=== PATIENT | male | born 1960 | race Hispanic/Latino ===

== ENCOUNTER 2022-05-17 20:24 | Inpatient (IN) | payer OTHER ==
[2022-05-17] MEDS ORDERED: Acetaminophen 325 MG TAB PO PRN (23:07)
[2022-05-17] MEDS ORDERED: Nitroglycerin 0.4 MG TAB (25 Tab Bottle) SL PRN (23:07)
[2022-05-17] MEDS ORDERED: Ondansetron ODT 4 MG TAB PO PRN (23:07)
[2022-05-17] MEDS ORDERED: Acetaminophen 650 MG Suppository PR PRN (23:07)
[2022-05-17] MEDS ORDERED: Morphine 4 MG/ML VIAL SLOW IVP PRN (23:11)
[2022-05-17 23:53] LABS: Troponin I 0.056 ng/mL (< 0.028)
[2022-05-17] MEDS ORDERED: Piperacillin/Tazobactam 3.375 GM in Sodium Chloride 0.9% 100 ML IVPB SCH (23:59)
[2022-05-18] MEDS: Vancomycin 1.5 GRAM/300 ML BAG 1.5 GM in Premix Bag 1 BAG IVPB SCH ×3 (00:23→00:34)
[2022-05-18 00:48] VITALS: BMI 29.2
[2022-05-18 01:17] LABS: #Eosinphils 0.2 thou/uL (0.0-0.7); #Lymphocytes 0.7 thou/uL (1.20-3.40); #Monocytes 0.5 thou/uL (0.11-0.59); #Neutrophils 8.1 thou/uL (1.40-6.50); %Basophils 0.2 % (0.0-1.0); %Eosinophils 2.4 % (0.0-10.0); %Lymphocytes 7.3 % (21.0-51.0); %Monocytes 4.9 % (0.0-10.0); %Neutrophils 85.3 % (42.0-75.0); Hemoglobin 12.8 g/dL (14.0-18.0); Mean Corpuscular HGB CONC 30.2 g/dL (32.0-36.0); Mean Corpuscular Hemoglobin 25.7 pg (27.0-31.0); Mean Corpuscular Volume 85.2 fL (78.0-98.0); Mean Platelet Volume 10.2 fL (7.4-10.4); Platelet Count 179 thou/uL (130-400); RBC Distribution Width 15.8 % (11.5-14.5); Red Blood Cell (RBC) Count 4.97 mill/uL (4.70-6.10); White Blood Cell (WBC) Count 9.5 thou/uL (4.8-10.8)
[2022-05-18 01:32] LABS: Anion Gap 16 mmol/L (10-20); BUN (Urea Nitrogen) 99 mg/dL (8.4-25.7); Calc. Creatinine Clearance 19 mL/min (70-130); Calcium 8.2 mg/dL (7.8-10.44); Carbon Dioxide 16 mmol/L (23-31); Chloride 117 mmol/L (98-107); Estimated GFR 14; Glucose 116 mg/dL (80-115); Potassium 4.3 mmol/L (3.5-5.1); Sodium 145 mmol/L (136-145)
[2022-05-18] MEDS: Piperacillin/Tazobactam 3.375 GM in Sodium Chloride 0.9% 100 ML IVPB SCH ×2 (03:58→20:37)
[2022-05-18 07:05] LABS: Troponin I 0.047 ng/mL (< 0.028)
[2022-05-18] MEDS ORDERED: Aspirin Chewable 81 MG TAB PO SCH (09:00)
[2022-05-18] MEDS ORDERED: Heparin 5,000 UNITS/ML VIAL SC SCH (09:00)
[2022-05-18] MEDS: hydrALAZINE 20 MG/ML VIAL SLOW IVP PRN (11:02)
[2022-05-18] MEDS ORDERED: hydrALAZINE 25 MG TAB PO SCH (11:15)
[2022-05-18] MEDS ORDERED: Isosorbide Dinitrate 20 MG TAB PO SCH (11:15)
[2022-05-18] MEDS: hydrALAZINE 25 MG TAB PO SCH ×2 (16:07→20:37)
[2022-05-18] MEDS: Atorvastatin Calcium 40 MG TAB PO SCH (20:37)
[2022-05-18] MEDS: Apixaban 2.5 MG TAB PO SCH (20:37)
[2022-05-18] MEDS: Isosorbide Dinitrate 20 MG TAB PO SCH (20:38)
[2022-05-19 00:22] LABS: Vancomycin, Random 14.2 ug/mL (See Comment)
[2022-05-19] MEDS ORDERED: VANCOMYCIN 1.25 GM/250 ML BAG 1.25 GM in Premix Bag 1 BAG IVPB SCH (01:00)
[2022-05-19] MEDS ORDERED: Vancomycin 1 GM in Premix Bag 1 BAG IVPB SCH (01:30)
[2022-05-19 01:47] LABS: Bacteria/HPF None Seen HPF (None Seen); Bilirubin Negative (Negative); Blood, Urine 1+ (Negative); Clarity Turbid (Clear); Glucose, Urine (Dipstick) Normal (Negative); Ketone, Urine Negative (Negative); Leukocyte 500 Leu/uL (Negative); Nitrite Negative (Negative); Protein, Urine (Dipstick) 100 mg/dL (Neg-Trace); Specific Gravity, Urine 1.012 (1.002-1.036); Squamous Epithelial None Seen HPF (0-3); Urobilinogen Normal mg/dL (Less than 2); WBC/HPF Greater than 50 HPF (0-3); pH, Urine 5.5 (5.0-9.0)
[2022-05-19 02:13] LABS: Creatinine, Urine 40.38 mg/dL (63-166)
[2022-05-19] MEDS: Piperacillin/Tazobactam 3.375 GM in Sodium Chloride 0.9% 100 ML IVPB SCH ×2 (03:58→17:07)
[2022-05-19 05:29] LABS: #Eosinphils 0.3 thou/uL (0.0-0.7); #Lymphocytes 0.6 thou/uL (1.20-3.40); #Monocytes 0.5 thou/uL (0.11-0.59); %Basophils 0.1 % (0.0-1.0); %Eosinophils 3.4 % (0.0-10.0); %Lymphocytes 5.8 % (21.0-51.0); %Monocytes 5.1 % (0.0-10.0); %Neutrophils 85.6 % (42.0-75.0); Hemoglobin 11.4 g/dL (14.0-18.0); Mean Corpuscular HGB CONC 30.5 g/dL (32.0-36.0); Mean Corpuscular Hemoglobin 25.7 pg (27.0-31.0); Mean Corpuscular Volume 84.3 fL (78.0-98.0); Mean Platelet Volume 10.2 fL (7.4-10.4); Platelet Count 168 thou/uL (130-400); RBC Distribution Width 15.7 % (11.5-14.5); Red Blood Cell (RBC) Count 4.43 mill/uL (4.70-6.10); White Blood Cell (WBC) Count 9.4 thou/uL (4.8-10.8)
[2022-05-19 06:07] LABS: Anion Gap 14 mmol/L (10-20); BUN (Urea Nitrogen) 91 mg/dL (8.4-25.7); Calc. Creatinine Clearance 19 mL/min (70-130); Calcium 7.5 mg/dL (7.8-10.44); Carbon Dioxide 19 mmol/L (23-31); Chloride 114 mmol/L (98-107); Estimated GFR 15; Glucose 169 mg/dL (80-115); Potassium 3.9 mmol/L (3.5-5.1); Sodium 143 mmol/L (136-145)
[2022-05-19] MEDS: Aspirin 81 mg Enteric Coated Tablet PO SCH (11:16)
[2022-05-19] MEDS: Apixaban 2.5 MG TAB PO SCH ×2 (11:16→20:54)
[2022-05-19] MEDS: Isosorbide Dinitrate 20 MG TAB PO SCH ×2 (11:16→20:47)
[2022-05-19] MEDS: hydrALAZINE 25 MG TAB PO SCH ×3 (11:16→20:48)
[2022-05-19] MEDS ORDERED: Nystatin Powder 15 GM BOT TOP PRN (11:27)
[2022-05-19] MEDS: Atorvastatin Calcium 40 MG TAB PO SCH (20:47)
[2022-05-19] MEDS: Sodium Bicarbonate Tab 325 MG TAB PO SCH (20:54)
[2022-05-19] MEDS: hydrALAZINE 20 MG/ML VIAL SLOW IVP PRN (22:14)
[2022-05-20] MEDS: hydrALAZINE 20 MG/ML VIAL SLOW IVP PRN (01:30)
[2022-05-20] MEDS: Piperacillin/Tazobactam 3.375 GM in Sodium Chloride 0.9% 100 ML IVPB SCH ×2 (04:37→16:17)
[2022-05-20 07:36] LABS: #Eosinphils 0.2 thou/uL (0.0-0.7); #Lymphocytes 0.7 thou/uL (1.20-3.40); #Monocytes 0.5 thou/uL (0.11-0.59); #Neutrophils 8.1 thou/uL (1.40-6.50); %Eosinophils 2.4 % (0.0-10.0); %Monocytes 5.2 % (0.0-10.0); %Neutrophils 85.4 % (42.0-75.0); Hemoglobin 12.5 g/dL (14.0-18.0); Mean Corpuscular HGB CONC 31.2 g/dL (32.0-36.0); Mean Corpuscular Hemoglobin 26.2 pg (27.0-31.0); Mean Corpuscular Volume 84.1 fL (78.0-98.0); Mean Platelet Volume 10.1 fL (7.4-10.4); Platelet Count 165 thou/uL (130-400); RBC Distribution Width 15.6 % (11.5-14.5); Red Blood Cell (RBC) Count 4.76 mill/uL (4.70-6.10); White Blood Cell (WBC) Count 9.5 thou/uL (4.8-10.8)
[2022-05-20 07:46] LABS: Anion Gap 14 mmol/L (10-20); BUN (Urea Nitrogen) 79 mg/dL (8.4-25.7); Calc. Creatinine Clearance 21 mL/min (70-130); Calcium 7.4 mg/dL (7.8-10.44); Carbon Dioxide 18 mmol/L (23-31); Chloride 114 mmol/L (98-107); Estimated GFR 16; Glucose 116 mg/dL (80-115); Sodium 142 mmol/L (136-145)
[2022-05-20] MEDS: Apixaban 2.5 MG TAB PO SCH ×2 (08:47→21:00)
[2022-05-20] MEDS: hydrALAZINE 25 MG TAB PO SCH ×3 (08:47→21:07)
[2022-05-20] MEDS: Aspirin 81 mg Enteric Coated Tablet PO SCH (08:49)
[2022-05-20] MEDS: Sodium Bicarbonate Tab 325 MG TAB PO SCH ×2 (08:49→20:59)
[2022-05-20] MEDS: Isosorbide Dinitrate 20 MG TAB PO SCH ×2 (08:49→21:07)
[2022-05-20] MEDS ORDERED: Carvedilol 6.25 MG TAB PO SCH (09:00)
[2022-05-20] MEDS ORDERED: NIFEdipine XL 90 MG TAB PO SCH (10:15)
[2022-05-20] MEDS: Atorvastatin Calcium 40 MG TAB PO SCH (21:00)
[2022-05-20] MEDS: Ondansetron PF 4 MG/2 ML Vial IVP PRN (21:00)
[2022-05-21] MEDS: Piperacillin/Tazobactam 3.375 GM in Sodium Chloride 0.9% 100 ML IVPB SCH (03:58)
[2022-05-21 04:55] LABS: #Eosinphils 0.2 thou/uL (0.0-0.7); #Lymphocytes 0.7 thou/uL (1.20-3.40); #Monocytes 0.5 thou/uL (0.11-0.59); #Neutrophils 8.3 thou/uL (1.40-6.50); %Eosinophils 2.2 % (0.0-10.0); %Monocytes 5.2 % (0.0-10.0); %Neutrophils 85.5 % (42.0-75.0); Hemoglobin 12.1 g/dL (14.0-18.0); Mean Corpuscular HGB CONC 29.4 g/dL (32.0-36.0); Mean Corpuscular Hemoglobin 25.5 pg (27.0-31.0); Mean Corpuscular Volume 86.6 fL (78.0-98.0); Mean Platelet Volume 10.3 fL (7.4-10.4); Platelet Count 183 thou/uL (130-400); RBC Distribution Width 16.2 % (11.5-14.5); Red Blood Cell (RBC) Count 4.76 mill/uL (4.70-6.10); White Blood Cell (WBC) Count 9.7 thou/uL (4.8-10.8)
[2022-05-21 05:41] LABS: Anion Gap 18 mmol/L (10-20); BUN (Urea Nitrogen) 84 mg/dL (8.4-25.7); Calc. Creatinine Clearance 18 mL/min (70-130); Calcium 7.8 mg/dL (7.8-10.44); Carbon Dioxide 15 mmol/L (23-31); Chloride 110 mmol/L (98-107); Estimated GFR 14; Glucose 142 mg/dL (80-115); Sodium 138 mmol/L (136-145)
[2022-05-21] MEDS ORDERED: FLU VACC QS2022-23(6MOS UP)/PF 60 MCG/0.5 ML SYRINGE IM ONE (09:00)
[2022-05-21] MEDS: Apixaban 2.5 MG TAB PO SCH ×2 (09:08→21:01)
[2022-05-21] MEDS: Sodium Bicarbonate Tab 325 MG TAB PO SCH ×2 (09:08→21:00)
[2022-05-21] MEDS: Aspirin 81 mg Enteric Coated Tablet PO SCH (09:08)
[2022-05-21] MEDS: hydrALAZINE 25 MG TAB PO SCH ×3 (09:09→21:15)
[2022-05-21] MEDS: Isosorbide Dinitrate 20 MG TAB PO SCH ×2 (09:09→21:01)
[2022-05-21] MEDS: NIFEdipine XL 90 MG TAB PO SCH (09:11)
[2022-05-21] MEDS: Cephalexin 250 MG CAP PO SCH (17:55)
[2022-05-21] MEDS ORDERED: Ciprofloxacin 500 MG TAB PO SCH (20:00)
[2022-05-21] MEDS: Atorvastatin Calcium 40 MG TAB PO SCH (21:15)
[2022-05-22 05:25] LABS: #Eosinphils 0.3 thou/uL (0.0-0.7); #Lymphocytes 0.8 thou/uL (1.20-3.40); #Monocytes 0.5 thou/uL (0.11-0.59); #Neutrophils 8.3 thou/uL (1.40-6.50); %Basophils 0.3 % (0.0-1.0); %Eosinophils 3.1 % (0.0-10.0); %Lymphocytes 7.9 % (21.0-51.0); %Monocytes 4.8 % (0.0-10.0); %Neutrophils 83.8 % (42.0-75.0); Hemoglobin 11.2 g/dL (14.0-18.0); Mean Corpuscular HGB CONC 29.6 g/dL (32.0-36.0); Mean Corpuscular Hemoglobin 25.2 pg (27.0-31.0); Mean Corpuscular Volume 85.1 fL (78.0-98.0); Mean Platelet Volume 9.6 fL (7.4-10.4); Platelet Count 166 thou/uL (130-400); RBC Distribution Width 15.9 % (11.5-14.5); Red Blood Cell (RBC) Count 4.45 mill/uL (4.70-6.10); White Blood Cell (WBC) Count 9.9 thou/uL (4.8-10.8)
[2022-05-22 05:54] LABS: Anion Gap 16 mmol/L (10-20); BUN (Urea Nitrogen) 90 mg/dL (8.4-25.7); Calc. Creatinine Clearance 16 mL/min (70-130); Calcium 7.9 mg/dL (7.8-10.44); Carbon Dioxide 19 mmol/L (23-31); Chloride 109 mmol/L (98-107); Estimated GFR 12; Glucose 94 mg/dL (80-115); Potassium 4.7 mmol/L (3.5-5.1); Sodium 139 mmol/L (136-145)
[2022-05-22] MEDS: Cephalexin 250 MG CAP PO SCH ×4 (07:28→18:35)
[2022-05-22] MEDS: Cipro 250 MG TAB PO SCH (07:37)
[2022-05-22] MEDS: Apixaban 2.5 MG TAB PO SCH (09:25)
[2022-05-22] MEDS: Aspirin 81 mg Enteric Coated Tablet PO SCH (09:25)
[2022-05-22] MEDS: Sodium Bicarbonate Tab 325 MG TAB PO SCH ×2 (09:25→20:55)
[2022-05-22] MEDS: NIFEdipine XL 90 MG TAB PO SCH (09:26)
[2022-05-22] MEDS: hydrALAZINE 25 MG TAB PO SCH ×3 (09:26→20:54)
[2022-05-22] MEDS: Isosorbide Dinitrate 20 MG TAB PO SCH ×2 (09:27→20:54)
[2022-05-22] MEDS ORDERED: CEFAZOLIN 2 GM in Sodium Chloride 0.9% 100 ML IVPB SCH (10:00)
[2022-05-22] MEDS: hydrALAZINE 20 MG/ML VIAL SLOW IVP PRN ×2 (13:25→18:35)
[2022-05-22] MEDS: Atorvastatin Calcium 40 MG TAB PO SCH (20:54)
[2022-05-23] MEDS: Cephalexin 250 MG CAP PO SCH ×4 (00:14→22:25)
[2022-05-23] MEDS: hydrALAZINE 20 MG/ML VIAL SLOW IVP PRN ×2 (02:34→11:13)
[2022-05-23] MEDS: Cipro 250 MG TAB PO SCH (06:04)
[2022-05-23] MEDS ORDERED: Propofol 500 MG/50 ML VIAL ONE (06:25)
[2022-05-23] MEDS ORDERED: Promethazine HCl 25 MG/ML VIAL IM PRN (07:40)
[2022-05-23] MEDS ORDERED: Promethazine HCl 25 MG/ML VIAL IVPB PRN (07:40)
[2022-05-23] MEDS ORDERED: Lidocaine 2% PF 5 ML VIAL ONE (07:51)
[2022-05-23] MEDS ORDERED: Bupivacaine PF 0.5% 30 ML VIAL ONE (07:51)
[2022-05-23] MEDS ORDERED: EPINEPHrine 1 MG/ML AMP ONE (07:51)
[2022-05-23] MEDS ORDERED: Heparin 10,000 UNITS/ 10 ML VIAL ONE (07:51)
[2022-05-23] MEDS ORDERED: Ketamine 50 MG/ML (10ML VIAL) ONE (07:58)
[2022-05-23] MEDS ORDERED: Sodium Chloride 0.9% 100 ML ONE (08:00)
[2022-05-23] MEDS ORDERED: CEFAZOLIN 2 GM VIAL ONE (08:00)
[2022-05-23] MEDS ORDERED: PROPOFOL 200 MG/20 ML VIAL ONE (08:09)
[2022-05-23] MEDS ORDERED: Labetalol HCl 100 MG/20 ML VIAL ONE (08:09)
[2022-05-23 09:38] LABS: #Eosinphils 0.2 thou/uL (0.0-0.7); #Lymphocytes 0.9 thou/uL (1.20-3.40); #Monocytes 0.5 thou/uL (0.11-0.59); #Neutrophils 8.4 thou/uL (1.40-6.50); %Basophils 0.4 % (0.0-1.0); %Lymphocytes 8.9 % (21.0-51.0); %Monocytes 5.4 % (0.0-10.0); %Neutrophils 83.4 % (42.0-75.0); Hemoglobin 11.4 g/dL (14.0-18.0); Mean Corpuscular HGB CONC 30.4 g/dL (32.0-36.0); Mean Corpuscular Hemoglobin 25.5 pg (27.0-31.0); Mean Corpuscular Volume 83.8 fL (78.0-98.0); Mean Platelet Volume 9.9 fL (7.4-10.4); Platelet Count 174 thou/uL (130-400); RBC Distribution Width 15.9 % (11.5-14.5); Red Blood Cell (RBC) Count 4.48 mill/uL (4.70-6.10)
[2022-05-23] MEDS: Sodium Bicarbonate Tab 325 MG TAB PO SCH ×2 (09:52→22:27)
[2022-05-23] MEDS: Aspirin 81 mg Enteric Coated Tablet PO SCH (09:52)
[2022-05-23] MEDS: hydrALAZINE 25 MG TAB PO SCH ×3 (09:52→22:26)
[2022-05-23] MEDS: Isosorbide Dinitrate 20 MG TAB PO SCH ×2 (09:52→22:26)
[2022-05-23] MEDS: NIFEdipine XL 90 MG TAB PO SCH (09:52)
[2022-05-23 09:58] LABS: Anion Gap 17 mmol/L (10-20); BUN (Urea Nitrogen) 90 mg/dL (8.4-25.7); Calc. Creatinine Clearance 16 mL/min (70-130); Carbon Dioxide 16 mmol/L (23-31); Chloride 111 mmol/L (98-107); Estimated GFR 11; Glucose 82 mg/dL (80-115); Potassium 4.2 mmol/L (3.5-5.1); Sodium 140 mmol/L (136-145)
[2022-05-23] MEDS ORDERED: Isosorbide Dinitrate 20 MG TAB PO SCH (11:45)
[2022-05-23] MEDS ORDERED: hydrALAZINE 25 MG TAB PO SCH (11:45)
[2022-05-23] MEDS ORDERED: NIFEdipine XL 90 MG TAB PO SCH (11:45)
[2022-05-23] MEDS ORDERED: Sodium Bicarbonate Tab 325 MG TAB PO SCH (11:45)
[2022-05-23 12:19] LABS: Hep B Surf Ag Non-Reactive S/CO (NonReactive)
[2022-05-23] MEDS: Atorvastatin Calcium 40 MG TAB PO SCH (22:25)
[2022-05-24] MEDS: Cephalexin 250 MG CAP PO SCH ×5 (01:42→23:53)
[2022-05-24] MEDS: Cipro 250 MG TAB PO SCH (06:09)
[2022-05-24 07:22] LABS: Hemoglobin 9.7 g/dL (14.0-18.0)
[2022-05-24 07:47] LABS: Anion Gap 14 mmol/L (10-20); BUN (Urea Nitrogen) 78 mg/dL (8.4-25.7); Calc. Creatinine Clearance 16 mL/min (70-130); Calcium 7.9 mg/dL (7.8-10.44); Carbon Dioxide 21 mmol/L (23-31); Chloride 106 mmol/L (98-107); Estimated GFR 12; Glucose 208 mg/dL (80-115); Sodium 137 mmol/L (136-145)
[2022-05-24] MEDS: Isosorbide Dinitrate 20 MG TAB PO SCH ×2 (09:15→21:36)
[2022-05-24] MEDS: NIFEdipine XL 90 MG TAB PO SCH (09:15)
[2022-05-24] MEDS: hydrALAZINE 25 MG TAB PO SCH ×3 (09:15→21:35)
[2022-05-24] MEDS: Aspirin 81 mg Enteric Coated Tablet PO SCH (09:32)
[2022-05-24] MEDS: Sodium Bicarbonate Tab 325 MG TAB PO SCH ×2 (09:32→21:36)
[2022-05-24] MEDS ORDERED: Heparin 10,000 UNITS/ 10 ML VIAL ONE (15:22)
[2022-05-24] MEDS: Atorvastatin Calcium 40 MG TAB PO SCH (21:36)
[2022-05-25] MEDS: Cephalexin 250 MG CAP PO SCH ×4 (06:04→23:57)
[2022-05-25] MEDS: Cipro 250 MG TAB PO SCH (06:04)
[2022-05-25] MEDS: Sodium Bicarbonate Tab 325 MG TAB PO SCH ×2 (09:21→21:05)
[2022-05-25] MEDS: hydrALAZINE 25 MG TAB PO SCH ×3 (09:21→21:05)
[2022-05-25] MEDS: Isosorbide Dinitrate 20 MG TAB PO SCH ×2 (09:22→21:05)
[2022-05-25] MEDS: NIFEdipine XL 90 MG TAB PO SCH (09:22)
[2022-05-25] MEDS: Aspirin 81 mg Enteric Coated Tablet PO SCH (09:22)
[2022-05-25] MEDS ORDERED: Heparin 10,000 UNITS/ 10 ML VIAL ONE (15:23)
[2022-05-25] MEDS: Atorvastatin Calcium 40 MG TAB PO SCH (21:05)
[2022-05-26] MEDS: Cephalexin 250 MG CAP PO SCH ×3 (06:07→17:34)
[2022-05-26] MEDS: Cipro 250 MG TAB PO SCH (06:07)
[2022-05-26] MEDS: NIFEdipine XL 90 MG TAB PO SCH (08:38)
[2022-05-26] MEDS: Sodium Bicarbonate Tab 325 MG TAB PO SCH ×2 (08:38→21:17)
[2022-05-26] MEDS: Isosorbide Dinitrate 20 MG TAB PO SCH ×3 (08:38→21:26)
[2022-05-26] MEDS: hydrALAZINE 25 MG TAB PO SCH ×3 (08:38→21:25)
[2022-05-26] MEDS: Aspirin 81 mg Enteric Coated Tablet PO SCH (08:38)
[2022-05-26] MEDS ORDERED: Ergocalciferol 1.25 MG(50,000 UNITS) CAP PO SCH (09:00)
[2022-05-26] MEDS: Atorvastatin Calcium 40 MG TAB PO SCH (21:17)
[2022-05-27] MEDS: Cephalexin 250 MG CAP PO SCH ×5 (00:10→17:50)
[2022-05-27] MEDS: Ondansetron PF 4 MG/2 ML Vial IVP PRN (02:51)
[2022-05-27] MEDS: Cipro 250 MG TAB PO SCH ×2 (05:48→08:01)
[2022-05-27 06:23] LABS: Anion Gap 13 mmol/L (10-20); BUN (Urea Nitrogen) 43 mg/dL (8.4-25.7); Calc. Creatinine Clearance 20 mL/min (70-130); Calcium 8.4 mg/dL (7.8-10.44); Carbon Dioxide 29 mmol/L (23-31); Chloride 101 mmol/L (98-107); Estimated GFR 15; Glucose 146 mg/dL (80-115); Potassium 4.2 mmol/L (3.5-5.1); Sodium 139 mmol/L (136-145)
[2022-05-27] MEDS: hydrALAZINE 25 MG TAB PO SCH ×3 (08:07→21:19)
[2022-05-27] MEDS: NIFEdipine XL 90 MG TAB PO SCH (08:07)
[2022-05-27] MEDS: Isosorbide Dinitrate 20 MG TAB PO SCH ×2 (08:07→21:19)
[2022-05-27] MEDS: Sodium Bicarbonate Tab 325 MG TAB PO SCH (08:08)
[2022-05-27] MEDS: Aspirin 81 mg Enteric Coated Tablet PO SCH (08:08)
[2022-05-27] MEDS: Epoetin (ESRD) 10,000 UNITS/ML VIAL IVP SCH (15:18)
[2022-05-27] MEDS ORDERED: Heparin 10,000 UNITS/ 10 ML VIAL ONE (15:24)
[2022-05-27] MEDS ORDERED: CEFAZOLIN 2 GM in Sodium Chloride 0.9% 100 ML IVPB SCH (16:15)
[2022-05-27] MEDS: Tuberculin PPD 0.1 ML VIAL I-DERMAL SCH (17:50)
[2022-05-27] MEDS: Atorvastatin Calcium 40 MG TAB PO SCH (21:19)
[2022-05-28] MEDS: Cephalexin 250 MG CAP PO SCH ×4 (00:50→18:23)
[2022-05-28] MEDS: Cipro 250 MG TAB PO SCH (05:51)
[2022-05-28 07:02] LABS: Anion Gap 11 mmol/L (10-20); BUN (Urea Nitrogen) 30 mg/dL (8.4-25.7); Calc. Creatinine Clearance 26 mL/min (70-130); Calcium 7.9 mg/dL (7.8-10.44); Carbon Dioxide 29 mmol/L (23-31); Chloride 103 mmol/L (98-107); Estimated GFR 21; Glucose 82 mg/dL (80-115); Potassium 3.8 mmol/L (3.5-5.1); Sodium 139 mmol/L (136-145)
[2022-05-28 07:23] LABS: HBSAg Index 0.26 S/CO (0-0.99); Hep B Surf Ag Non-Reactive S/CO (NonReactive)
[2022-05-28 07:38] LABS: #Eosinphils 0.2 thou/uL (0.0-0.7); #Lymphocytes 0.7 thou/uL (1.20-3.40); #Monocytes 0.5 thou/uL (0.11-0.59); #Neutrophils 6.3 thou/uL (1.40-6.50); %Basophils 0.3 % (0.0-1.0); %Eosinophils 2.5 % (0.0-10.0); %Lymphocytes 8.7 % (21.0-51.0); %Monocytes 6.8 % (0.0-10.0); %Neutrophils 81.7 % (42.0-75.0); Hemoglobin 8.4 g/dL (14.0-18.0); Mean Corpuscular HGB CONC 29.8 g/dL (32.0-36.0); Mean Corpuscular Hemoglobin 25.1 pg (27.0-31.0); Mean Corpuscular Volume 84.2 fl (78.0-98.0); Mean Platelet Volume 10.2 fL (7.4-10.4); Platelet Count 112 thou/uL (130-400); RBC Distribution Width 15.5 % (11.5-14.5); Red Blood Cell (RBC) Count 3.35 mill/uL (4.70-6.10); White Blood Cell (WBC) Count 7.7 thou/uL (4.8-10.8)
[2022-05-28 07:39] LABS: Hypochromia SLIGHT = 6-15 cells (100X) (0-5/hpf); MDiff Complete? YES; Platelet Morphology Comment Appears Decreased; Polychromasia SLIGHT = 2-3 cells (100X) (0-2/hpf)
[2022-05-28] MEDS: Aspirin 81 mg Enteric Coated Tablet PO SCH (08:12)
[2022-05-28] MEDS: hydrALAZINE 25 MG TAB PO SCH ×3 (08:12→20:28)
[2022-05-28] MEDS: NIFEdipine XL 90 MG TAB PO SCH (08:12)
[2022-05-28] MEDS: Isosorbide Dinitrate 20 MG TAB PO SCH ×2 (08:13→20:28)
[2022-05-28 08:55] LABS: HBSAB Concentration 54.59 mIU/mL; Hep B Surf AB Reactive (NonReactive); Hep C IgG Ab Reflex HepC Qnt (NonReactive); Hep C Index 4.68 S/CO (0-0.79)
[2022-05-28 08:56] LABS: Hep B Core Total Ab Reactive (NonReactive)
[2022-05-28 08:57] LABS: Hep B Core Total Index 13.59 S/CO (0-0.79)
[2022-05-28] MEDS: Atorvastatin Calcium 40 MG TAB PO SCH (20:28)
[2022-05-29] MEDS: Cephalexin 250 MG CAP PO SCH ×4 (05:12→18:03)
[2022-05-29] MEDS: Cipro 250 MG TAB PO SCH (05:12)
[2022-05-29 05:46] LABS: #Eosinphils 0.2 thou/uL (0.0-0.7); #Lymphocytes 0.5 thou/uL (1.20-3.40); #Monocytes 0.5 thou/uL (0.11-0.59); #Neutrophils 6.1 thou/uL (1.40-6.50); %Basophils 0.5 % (0.0-1.0); %Eosinophils 2.2 % (0.0-10.0); %Lymphocytes 7.4 % (21.0-51.0); %Monocytes 6.3 % (0.0-10.0); %Neutrophils 83.6 % (42.0-75.0); Mean Corpuscular HGB CONC 29.9 g/dL (32.0-36.0); Mean Corpuscular Hemoglobin 25.2 pg (27.0-31.0); Mean Corpuscular Volume 84.2 fl (78.0-98.0); Mean Platelet Volume 10.2 fL (7.4-10.4); Platelet Count 122 thou/uL (130-400); RBC Distribution Width 15.6 % (11.5-14.5); Red Blood Cell (RBC) Count 3.17 mill/uL (4.70-6.10); White Blood Cell (WBC) Count 7.3 thou/uL (4.8-10.8)
[2022-05-29 06:51] LABS: Anion Gap 14 mmol/L (10-20); BUN (Urea Nitrogen) 42 mg/dL (8.4-25.7); Calc. Creatinine Clearance 21 mL/min (70-130); Calcium 8.2 mg/dL (7.8-10.44); Carbon Dioxide 25 mmol/L (23-31); Chloride 101 mmol/L (98-107); Estimated GFR 16; Glucose 143 mg/dL (80-115); Potassium 3.8 mmol/L (3.5-5.1); Sodium 136 mmol/L (136-145)
[2022-05-29] MEDS: Aspirin 81 mg Enteric Coated Tablet PO SCH (08:37)
[2022-05-29] MEDS: hydrALAZINE 25 MG TAB PO SCH ×3 (09:20→20:06)
[2022-05-29] MEDS: NIFEdipine XL 60 MG TAB PO SCH ×2 (09:21→20:06)
[2022-05-29] MEDS: Isosorbide Dinitrate 20 MG TAB PO SCH ×2 (09:21→20:06)
[2022-05-29] MEDS: Epoetin (ESRD) 10,000 UNITS/ML VIAL IVP SCH (11:13)
[2022-05-29] MEDS: Tuberculin PPD 0.1 ML VIAL I-DERMAL SCH (17:30)
[2022-05-29] MEDS: Atorvastatin Calcium 40 MG TAB PO SCH (20:06)
[2022-05-30] MEDS: Cephalexin 250 MG CAP PO SCH ×4 (00:08→18:12)
[2022-05-30] MEDS: Cipro 250 MG TAB PO SCH (05:18)
[2022-05-30 06:21] LABS: #Eosinphils 0.2 thou/uL (0.0-0.7); #Lymphocytes 0.7 thou/uL (1.20-3.40); #Monocytes 0.4 thou/uL (0.11-0.59); #Neutrophils 5.3 thou/uL (1.40-6.50); %Basophils 0.7 % (0.0-1.0); %Eosinophils 2.6 % (0.0-10.0); %Lymphocytes 10.1 % (21.0-51.0); %Neutrophils 80.6 % (42.0-75.0); Hemoglobin 8.5 g/dL (14.0-18.0); Mean Corpuscular HGB CONC 29.8 g/dL (32.0-36.0); Mean Corpuscular Hemoglobin 25.4 pg (27.0-31.0); Mean Corpuscular Volume 85.1 fl (78.0-98.0); Mean Platelet Volume 9.8 fL (7.4-10.4); Platelet Count 140 thou/uL (130-400); RBC Distribution Width 15.3 % (11.5-14.5); Red Blood Cell (RBC) Count 3.35 mill/uL (4.70-6.10); White Blood Cell (WBC) Count 6.6 thou/uL (4.8-10.8)
[2022-05-30 07:17] LABS: Anion Gap 14 mmol/L (10-20); BUN (Urea Nitrogen) 30 mg/dL (8.4-25.7); Calc. Creatinine Clearance 26 mL/min (70-130); Calcium 8.3 mg/dL (7.8-10.44); Carbon Dioxide 27 mmol/L (23-31); Chloride 103 mmol/L (98-107); Estimated GFR 21; Glucose 83 mg/dL (80-115); Potassium 4.1 mmol/L (3.5-5.1); Sodium 140 mmol/L (136-145)
[2022-05-30] MEDS: Isosorbide Dinitrate 20 MG TAB PO SCH ×2 (09:14→21:06)
[2022-05-30] MEDS: NIFEdipine XL 60 MG TAB PO SCH ×2 (09:14→21:06)
[2022-05-30] MEDS: Aspirin 81 mg Enteric Coated Tablet PO SCH (09:14)
[2022-05-30] MEDS: hydrALAZINE 25 MG TAB PO SCH ×3 (09:14→21:05)
[2022-05-30 19:12] LABS: HCV RNA, log10 3.624 (.); Hep C PCR-Quant 4210 IU/mL (.)
[2022-05-30] MEDS: Atorvastatin Calcium 40 MG TAB PO SCH (21:05)
[2022-05-31] MEDS: Cephalexin 250 MG CAP PO SCH ×3 (00:29→12:09)
[2022-05-31] MEDS: Cipro 250 MG TAB PO SCH (05:39)
[2022-05-31 07:04] LABS: #Eosinphils 0.1 thou/uL (0.0-0.7); #Lymphocytes 0.7 thou/uL (1.20-3.40); #Monocytes 0.6 thou/uL (0.11-0.59); %Basophils 0.4 % (0.0-1.0); %Eosinophils 1.1 % (0.0-10.0); %Lymphocytes 9.2 % (21.0-51.0); %Monocytes 8.1 % (0.0-10.0); %Neutrophils 81.3 % (42.0-75.0); Hemoglobin 7.9 g/dL (14.0-18.0); Mean Corpuscular HGB CONC 29.5 g/dL (32.0-36.0); Mean Corpuscular Hemoglobin 24.6 pg (27.0-31.0); Mean Corpuscular Volume 83.3 fl (78.0-98.0); Mean Platelet Volume 10.3 fL (7.4-10.4); Platelet Count 154 thou/uL (130-400); RBC Distribution Width 15.5 % (11.5-14.5); Red Blood Cell (RBC) Count 3.23 mill/uL (4.70-6.10); White Blood Cell (WBC) Count 7.3 thou/uL (4.8-10.8)
[2022-05-31 07:07] LABS: Anion Gap 15 mmol/L (10-20); BUN (Urea Nitrogen) 42 mg/dL (8.4-25.7); Calc. Creatinine Clearance 20 mL/min (70-130); Calcium 8.5 mg/dL (7.8-10.44); Carbon Dioxide 26 mmol/L (23-31); Chloride 101 mmol/L (98-107); Estimated GFR 16; Glucose 137 mg/dL (80-115); Potassium 4.5 mmol/L (3.5-5.1); Sodium 137 mmol/L (136-145)
[2022-05-31] MEDS: Isosorbide Dinitrate 20 MG TAB PO SCH (09:08)
[2022-05-31] MEDS: Aspirin 81 mg Enteric Coated Tablet PO SCH (09:08)
[2022-05-31] MEDS: NIFEdipine XL 60 MG TAB PO SCH (09:08)
[2022-05-31] MEDS: hydrALAZINE 25 MG TAB PO SCH ×2 (09:08→12:09)
[2022-05-31] MEDS ORDERED: Heparin 10,000 UNITS/ 10 ML VIAL ONE (09:16)
[2022-05-31] MEDS: Epoetin (ESRD) 10,000 UNITS/ML VIAL IVP SCH (10:03)
[2022-05-31 12:10] VITALS: BP 168/86; TEMP 98.6
== END 2022-05-31 15:52 | disposition home or self-care (01) | DRG 871 ==
LOC: NEURO 20:24 → T4-B 05-28 15:38
PROVIDERS: ADMIT Family Medicine; ATTEND Family Medicine
PROC: 3E03329 Introduction of Other Anti-infective into Peripheral Vein, Percutaneous Approach (ICD-10-PCS; 2022-05-17)
PROC: 5A1D70Z Performance of Urinary Filtration, Intermittent, Less than 6 Hours Per Day (ICD-10-PCS; principal; 2022-05-23)
PROC: 0JH60XZ Insertion of Tunneled Vascular Access Device into Chest Subcutaneous Tissue and Fascia, Open Approach (ICD-10-PCS; 2022-05-23)
PROC: 02HV33Z Insertion of Infusion Device into Superior Vena Cava, Percutaneous Approach (ICD-10-PCS; 2022-05-23)
PROC: B5181ZA Fluoroscopy of Superior Vena Cava using Low Osmolar Contrast, Guidance (ICD-10-PCS; 2022-05-23)
PROC: 02HV33Z Insertion of Infusion Device into Superior Vena Cava, Percutaneous Approach (ICD-10-PCS; 2022-05-23)
PROC: B548ZZA Ultrasonography of Superior Vena Cava, Guidance (ICD-10-PCS; 2022-05-23)
DX: A41.9 Sepsis, unspecified organism (principal); G93.41 Metabolic encephalopathy; I21.A1 Myocardial infarction type 2; I50.43 Acute on chronic combined systolic (congestive) and diastolic (congestive) heart failure; N18.6 End stage renal disease; I13.2 Hypertensive heart and chronic kidney disease with heart failure and with stage 5 chronic kidney disease, or end stage renal disease; N39.0 Urinary tract infection, site not specified; N17.9 Acute kidney failure, unspecified; E87.0 Hyperosmolality and hypernatremia; E87.20 Acidosis, unspecified; I69.354 Hemiplegia and hemiparesis following cerebral infarction affecting left non-dominant side; T82.838A Hemorrhage due to vascular prosthetic devices, implants and grafts, initial encounter; R65.20 Severe sepsis without septic shock; Z20.822 Contact with and (suspected) exposure to COVID-19; I25.10 Atherosclerotic heart disease of native coronary artery without angina pectoris; N49.2 Inflammatory disorders of scrotum; E87.70 Fluid overload, unspecified; N20.0 Calculus of kidney; N26.1 Atrophy of kidney (terminal); E55.9 Vitamin D deficiency, unspecified; D63.1 Anemia in chronic kidney disease; R00.1 Bradycardia, unspecified; I45.10 Unspecified right bundle-branch block; Y83.8 Other surgical procedures as the cause of abnormal reaction of the patient, or of later complication, without mention of misadventure at the time of the procedure; Z28.21 Immunization not carried out because of patient refusal; Z99.2 Dependence on renal dialysis; Z79.01 Long term (current) use of anticoagulants; Z79.82 Long term (current) use of aspirin; Z79.899 Other long term (current) drug therapy
CPT/HCPCS: 36415; 36416; 70450; 71045; 76770; 76870; 80048; 80202; 81003; 81015; 82140; 82306; 82570; 83605; 83880; 83970; 84156; 84484; 85014; 85018; 85025; 86580; 86704; 87340; 87522; 87811; 90935; 93005; 93010; 93306; 93970; 93976; 94760; C1751; C1752; G0257; J0171; J0360; J0690; J1644; J2001; J2405; J2543; J2597; J2704; J3370; J3490; Q4081; S0020; U0003; U0005

== ENCOUNTER 2022-11-17 21:59 | Inpatient (IN) | payer OTHER ==
[2022-11-17] MEDS ORDERED: fentaNYL 50 mcg/mL 1 mL Vial ONE (22:51)
[2022-11-18] MEDS ORDERED: fentaNYL 50 mcg/mL 1 mL Vial ONE (00:40)
[2022-11-18 00:47] LABS: #Eosinphils 0.1 thou/uL (0.0-0.7); #Lymphocytes 0.6 thou/uL (1.20-3.40); #Monocytes 0.5 thou/uL (0.11-0.59); #Neutrophils 12.5 thou/uL (1.40-6.50); %Basophils 0.3 % (0.0-1.0); %Eosinophils 0.6 % (0.0-10.0); %Lymphocytes 4.4 % (21.0-51.0); %Monocytes 3.7 % (0.0-10.0); Hemoglobin 15.2 g/dL (14.0-18.0); Mean Corpuscular HGB CONC 35.8 g/dL (32.0-36.0); Mean Corpuscular Hemoglobin 33.5 pg (27.0-31.0); Mean Corpuscular Volume 93.6 fl (78.0-98.0); Mean Platelet Volume 9.8 fL (7.4-10.4); Platelet Count 159 10x3/uL (130-400); RBC Distribution Width 13.5 % (11.5-14.5); Red Blood Cell (RBC) Count 4.54 mill/uL (4.70-6.10); White Blood Cell (WBC) Count 13.8 10x3/uL (4.8-10.8)
[2022-11-18 00:59] LABS: INR-International Normal Ratio 1.3; PTT 31.9 sec (22.9-36.1); Prothrombin Time 16.5 sec (12.0-14.7)
[2022-11-18 01:09] LABS: ALT (SGPT) 32 U/L (8-55); AST (SGOT) 23 U/L (5-34); Albumin 4.1 g/dL (3.4-4.8); Alkaline Phosphatase 118 U/L (40-110); Anion Gap 22 mmol/L (10-20); BUN (Urea Nitrogen) 55 mg/dL (8.4-25.7); Bilirubin, Total 0.7 mg/dL (0.2-1.2); Calc. Creatinine Clearance 0 mL/min (70-130); Carbon Dioxide 16 mmol/L (23-31); Chloride 101 mmol/L (98-107); Estimated GFR 8; Globulin 3.6 g/dL (2.4-3.5); Glucose 104 mg/dL (80-115); Protein, Total 7.7 g/dL (5.8-8.1); Sodium 135 mmol/L (136-145)
[2022-11-18] MEDS ORDERED: TETANUS, DIPHTHERIA TOX,ADULT (TDVAX) 0.5 ML VIAL IM ONE (01:42)
[2022-11-18] MEDS ORDERED: Ipratropium/Albuterol 3 ML NEB NEB PRN (01:42)
[2022-11-18] MEDS ORDERED: Sodium Chloride 0.9% 1,000 ML IV SCH (01:45)
[2022-11-18] MEDS ORDERED: traMADol HCl 50 MG TAB PO PRN (01:46)
[2022-11-18] MEDS ORDERED: Cyclobenzaprine 10 MG TAB PO PRN (01:46)
[2022-11-18 03:15] VITALS: BMI 24.7
[2022-11-18] MEDS: Acetaminophen 500 MG TAB PO SCH ×4 (03:19→22:27)
[2022-11-18] MEDS: Morphine 2 MG/ML VIAL SLOW IVP PRN ×2 (03:40→06:11)
[2022-11-18] MEDS ORDERED: hydrALAZINE 20 MG/ML VIAL SLOW IVP SCH (03:45)
[2022-11-18] MEDS ORDERED: traMADol HCl 50 MG TAB PO SCH (06:00)
[2022-11-18 06:12] LABS: #Eosinphils 0.3 thou/uL (0.0-0.7); #Lymphocytes 0.7 thou/uL (1.20-3.40); #Monocytes 0.4 thou/uL (0.11-0.59); #Neutrophils 9.9 thou/uL (1.40-6.50); %Basophils 0.2 % (0.0-1.0); %Eosinophils 2.7 % (0.0-10.0); %Lymphocytes 6.1 % (21.0-51.0); %Monocytes 3.8 % (0.0-10.0); %Neutrophils 87.2 % (42.0-75.0); Hemoglobin 13.7 g/dL (14.0-18.0); Mean Corpuscular Hemoglobin 31.1 pg (27.0-31.0); Mean Corpuscular Volume 94.2 fl (78.0-98.0); Platelet Count 138 10x3/uL (130-400); RBC Distribution Width 13.4 % (11.5-14.5); Red Blood Cell (RBC) Count 4.41 mill/uL (4.70-6.10); White Blood Cell (WBC) Count 11.3 10x3/uL (4.8-10.8)
[2022-11-18 06:20] LABS: INR-International Normal Ratio 1.4; PTT 31.8 sec (22.9-36.1); Prothrombin Time 17.3 sec (12.0-14.7)
[2022-11-18 06:35] LABS: Anion Gap 19 mmol/L (10-20); BUN (Urea Nitrogen) 57 mg/dL (8.4-25.7); Calc. Creatinine Clearance 9 mL/min (70-130); Calcium 8.8 mg/dL (7.8-10.44); Carbon Dioxide 17 mmol/L (23-31); Chloride 103 mmol/L (98-107); Estimated GFR 8; Glucose 104 mg/dL (80-115); Potassium 3.6 mmol/L (3.5-5.1); Sodium 135 mmol/L (136-145)
[2022-11-18] MEDS ORDERED: Heparin 10,000 UNITS/ 10 ML VIAL ONE (08:32)
[2022-11-18] MEDS ORDERED: Carvedilol 3.125 MG TAB PO SCH (09:00)
[2022-11-18] MEDS ORDERED: Sodium Bicarbonate 150 MEQ in Dextrose 5% in Water 1,000 ML IV SCH (09:00)
[2022-11-18] MEDS: Senokot S 8.6-50 MG TAB PO SCH ×2 (09:15→22:28)
[2022-11-18] MEDS: Gabapentin 100 MG CAP PO SCH ×3 (09:15→22:28)
[2022-11-18] MEDS: NIFEdipine XL 60 MG TAB PO SCH ×2 (09:15→22:28)
[2022-11-18] MEDS: Folic Acid 1 MG TAB PO SCH (09:16)
[2022-11-18] MEDS: Famotidine/PF 20 mg/2ml Vial SLOW IVP SCH (09:16)
[2022-11-18] MEDS: Thiamine 100 MG TAB PO SCH (09:16)
[2022-11-18] MEDS: Carvedilol 6.25 MG TAB PO SCH ×2 (09:16→22:28)
[2022-11-18] MEDS: Polyethylene Glycol 3350 17 GM Packet PO SCH (09:20)
[2022-11-18] MEDS ORDERED: Morphine 4 MG/ML VIAL SLOW IVP PRN (10:22)
[2022-11-18] MEDS: Acetaminophen/Codeine 30-300mg Tablet PO SCH ×2 (13:11→17:30)
[2022-11-18] MEDS: Oxazepam 10 MG CAP PO SCH ×2 (15:00→22:27)
[2022-11-18 15:20] LABS: HBSAg Index 0.23 S/CO (0-0.99); Hep B Surf Ag Non-Reactive S/CO (NonReactive)
[2022-11-18 15:57] LABS: Hep C IgG Ab Reflex HepC Qnt (NonReactive); Hep C Index 6.24 S/CO (0-0.79)
[2022-11-18 15:58] LABS: HBSAB Concentration 49.99 mIU/mL; Hep B Surf AB Reactive (NonReactive)
[2022-11-18 16:40] LABS: Hep B Core Total Ab Reactive (NonReactive)
[2022-11-18 16:41] LABS: Hep B Core Total Index 14.18 S/CO (0-0.79)
[2022-11-19] MEDS: Acetaminophen/Codeine 30-300mg Tablet PO SCH ×4 (00:51→17:27)
[2022-11-19] MEDS: Acetaminophen 500 MG TAB PO SCH ×4 (03:34→22:58)
[2022-11-19] MEDS: Oxazepam 10 MG CAP PO SCH ×3 (05:01→22:58)
[2022-11-19] MEDS ORDERED: CEFAZOLIN 2 GM in Sodium Chloride 0.9% 100 ML IVPB SCH (07:45)
[2022-11-19] MEDS: NIFEdipine XL 60 MG TAB PO SCH ×2 (08:13→23:03)
[2022-11-19] MEDS: Famotidine/PF 20 mg/2ml Vial SLOW IVP SCH (08:14)
[2022-11-19] MEDS: Carvedilol 6.25 MG TAB PO SCH ×2 (08:14→23:03)
[2022-11-19] MEDS: Folic Acid 1 MG TAB PO SCH (09:07)
[2022-11-19] MEDS: Polyethylene Glycol 3350 17 GM Packet PO SCH (09:08)
[2022-11-19] MEDS: Senokot S 8.6-50 MG TAB PO SCH ×2 (09:08→23:04)
[2022-11-19] MEDS: Thiamine 100 MG TAB PO SCH (09:08)
[2022-11-19] MEDS: Gabapentin 100 MG CAP PO SCH ×3 (09:08→23:03)
[2022-11-19] MEDS ORDERED: KETAMINE 100 MG/ML (5ML VIAL) ONE (19:06)
[2022-11-19] MEDS ORDERED: fentaNYL PF 100 MCG/2 ML SYRINGE ONE (19:06)
[2022-11-19] MEDS ORDERED: Sodium Chloride 0.9% 100 ML ONE (19:13)
[2022-11-19] MEDS ORDERED: CEFAZOLIN 2 GM VIAL ONE (19:13)
[2022-11-19] MEDS ORDERED: ePHEDrine Sulfate 50 MG/10 ML VIAL ONE (19:57)
[2022-11-19] MEDS ORDERED: Phenylephrine 10 MG/ML VIAL ONE (19:57)
[2022-11-19] MEDS ORDERED: Rocuronium Bromide 10 MG/ML (10ML VIAL) ONE (19:57)
[2022-11-19] MEDS ORDERED: Lidocaine 1% PF 5 ML VIAL ONE (19:57)
[2022-11-19] MEDS ORDERED: PROPOFOL 200 MG/20 ML VIAL ONE (19:57)
[2022-11-19] MEDS ORDERED: Ondansetron PF 4 MG/2 ML Vial ONE (19:57)
[2022-11-19] MEDS ORDERED: HYDROmorphone 2 MG/ML VIAL SLOW IVP PRN (20:57)
[2022-11-19] MEDS ORDERED: Morphine Sulfate 2 MG/ML SYRINGE SLOW IVP PRN (20:57)
[2022-11-19] MEDS ORDERED: PACU-Morphine 4MG/ML VIAL SLOW IVP PRN (20:57)
[2022-11-19] MEDS ORDERED: Promethazine HCl 25 MG/ML VIAL IM PRN (20:57)
[2022-11-19] MEDS ORDERED: Ondansetron HCl/PF 4 MG/2 ML Vial IVP PRN (20:57)
[2022-11-19] MEDS ORDERED: SUGAMMADEX SODIUM 200 MG/2 ML VIAL ONE (21:35)
[2022-11-19] MEDS: CEFAZOLIN 2 GM in Sodium Chloride 0.9% 100 ML IVPB SCH (23:05)
[2022-11-20] MEDS: Acetaminophen/Codeine 30-300mg Tablet PO SCH ×5 (00:41→17:20)
[2022-11-20] MEDS: Oxazepam 10 MG CAP PO SCH ×4 (00:41→21:33)
[2022-11-20] MEDS: Acetaminophen 500 MG TAB PO SCH ×4 (03:37→21:33)
[2022-11-20] MEDS: CEFAZOLIN 2 GM in Sodium Chloride 0.9% 100 ML IVPB SCH (05:35)
[2022-11-20 06:02] LABS: #Basophils 0.1 thou/uL (0.0-0.2); #Lymphocytes 0.3 thou/uL (1.20-3.40); #Monocytes 0.1 thou/uL (0.11-0.59); #Neutrophils 9.2 thou/uL (1.40-6.50); %Basophils 0.6 % (0.0-1.0); %Eosinophils 0.3 % (0.0-10.0); %Lymphocytes 2.6 % (21.0-51.0); %Monocytes 1.4 % (0.0-10.0); %Neutrophils 95.1 % (42.0-75.0); Hemoglobin 12.7 g/dL (14.0-18.0); Mean Corpuscular Hemoglobin 31.4 pg (27.0-31.0); Mean Corpuscular Volume 95.2 fl (78.0-98.0); Mean Platelet Volume 9.1 fL (7.4-10.4); Platelet Count 123 10x3/uL (130-400); RBC Distribution Width 13.3 % (11.5-14.5); Red Blood Cell (RBC) Count 4.05 mill/uL (4.70-6.10); White Blood Cell (WBC) Count 9.7 10x3/uL (4.8-10.8)
[2022-11-20 06:25] LABS: Anion Gap 20 mmol/L (10-20); BUN (Urea Nitrogen) 47 mg/dL (8.4-25.7); Calc. Creatinine Clearance 11 mL/min (70-130); Calcium 7.8 mg/dL (7.8-10.44); Carbon Dioxide 20 mmol/L (23-31); Chloride 99 mmol/L (98-107); Estimated GFR 9; Glucose 139 mg/dL (80-115); Magnesium 2.1 mg/dL (1.6-2.6); Phosphorus 8.2 mg/dL (2.3-4.7); Potassium 4.2 mmol/L (3.5-5.1); Sodium 135 mmol/L (136-145)
[2022-11-20] MEDS: NIFEdipine XL 60 MG TAB PO SCH ×2 (08:23→21:31)
[2022-11-20] MEDS: Gabapentin 100 MG CAP PO SCH ×3 (08:23→21:32)
[2022-11-20] MEDS: Folic Acid 1 MG TAB PO SCH (08:23)
[2022-11-20] MEDS: Senokot S 8.6-50 MG TAB PO SCH ×2 (08:23→21:31)
[2022-11-20] MEDS: Polyethylene Glycol 3350 17 GM Packet PO SCH (08:25)
[2022-11-20] MEDS: Famotidine/PF 20 mg/2ml Vial SLOW IVP SCH (08:25)
[2022-11-20] MEDS: Carvedilol 6.25 MG TAB PO SCH ×2 (08:25→21:31)
[2022-11-20] MEDS: Thiamine 100 MG TAB PO SCH (08:25)
[2022-11-20] MEDS: Heparin 5,000 UNITS/ML VIAL SC SCH ×2 (10:15→21:33)
[2022-11-20] MEDS ORDERED: Heparin 10,000 UNITS/ 10 ML VIAL ONE (11:20)
[2022-11-21] MEDS: Acetaminophen 500 MG TAB PO SCH ×4 (01:14→21:18)
[2022-11-21] MEDS: Acetaminophen/Codeine 30-300mg Tablet PO SCH ×4 (01:14→17:42)
[2022-11-21 05:04] LABS: #Lymphocytes 0.5 thou/uL (1.20-3.40); #Monocytes 0.8 thou/uL (0.11-0.59); #Neutrophils 8.8 thou/uL (1.40-6.50); %Eosinophils 0.4 % (0.0-10.0); %Lymphocytes 5.2 % (21.0-51.0); %Monocytes 7.6 % (0.0-10.0); %Neutrophils 86.9 % (42.0-75.0); Hemoglobin 10.6 g/dL (14.0-18.0); Mean Corpuscular Volume 96.8 fl (78.0-98.0); Mean Platelet Volume 9.1 fL (7.4-10.4); Platelet Count 124 10x3/uL (130-400); RBC Distribution Width 13.5 % (11.5-14.5); Red Blood Cell (RBC) Count 3.42 mill/uL (4.70-6.10); White Blood Cell (WBC) Count 10.1 10x3/uL (4.8-10.8)
[2022-11-21] MEDS: Oxazepam 10 MG CAP PO SCH ×3 (05:28→21:17)
[2022-11-21 05:31] LABS: Anion Gap 17 mmol/L (10-20); BUN (Urea Nitrogen) 41 mg/dL (8.4-25.7); Calc. Creatinine Clearance 13 mL/min (70-130); Calcium 7.9 mg/dL (7.8-10.44); Carbon Dioxide 23 mmol/L (23-31); Chloride 97 mmol/L (98-107); Estimated GFR 11; Glucose 165 mg/dL (80-115); Magnesium 2.2 mg/dL (1.6-2.6); Phosphorus 6.2 mg/dL (2.3-4.7); Potassium 4.3 mmol/L (3.5-5.1); Sodium 133 mmol/L (136-145)
[2022-11-21] MEDS: Gabapentin 100 MG CAP PO SCH ×3 (10:00→21:17)
[2022-11-21] MEDS: Senokot S 8.6-50 MG TAB PO SCH ×2 (10:00→21:18)
[2022-11-21] MEDS: Famotidine/PF 20 mg/2ml Vial SLOW IVP SCH (10:01)
[2022-11-21] MEDS: Thiamine 100 MG TAB PO SCH (10:01)
[2022-11-21] MEDS: Folic Acid 1 MG TAB PO SCH (10:01)
[2022-11-21] MEDS: Heparin 5,000 UNITS/ML VIAL SC SCH ×2 (10:02→21:18)
[2022-11-21] MEDS: Polyethylene Glycol 3350 17 GM Packet PO SCH (10:33)
[2022-11-21] MEDS: Carvedilol 6.25 MG TAB PO SCH ×2 (10:34→21:17)
[2022-11-21] MEDS: NIFEdipine XL 60 MG TAB PO SCH ×2 (10:34→21:17)
[2022-11-22] MEDS: Acetaminophen/Codeine 30-300mg Tablet PO SCH ×2 (00:26→05:27)
[2022-11-22] MEDS: Acetaminophen 500 MG TAB PO SCH ×4 (01:34→20:28)
[2022-11-22] MEDS: Oxazepam 10 MG CAP PO SCH (05:26)
[2022-11-22 07:33] LABS: #Eosinphils 0.3 thou/uL (0.0-0.7); #Lymphocytes 1.1 thou/uL (1.20-3.40); #Monocytes 0.6 thou/uL (0.11-0.59); %Basophils 0.4 % (0.0-1.0); %Eosinophils 3.9 % (0.0-10.0); %Lymphocytes 11.7 % (21.0-51.0); %Monocytes 6.9 % (0.0-10.0); %Neutrophils 77.1 % (42.0-75.0); Hemoglobin 10.7 g/dL (14.0-18.0); Mean Corpuscular Hemoglobin 31.8 pg (27.0-31.0); Mean Corpuscular Volume 96.2 fl (78.0-98.0); Mean Platelet Volume 9.3 fL (7.4-10.4); Platelet Count 119 10x3/uL (130-400); RBC Distribution Width 13.3 % (11.5-14.5); Red Blood Cell (RBC) Count 3.36 mill/uL (4.70-6.10)
[2022-11-22 07:44] LABS: Anion Gap 18 mmol/L (10-20); BUN (Urea Nitrogen) 60 mg/dL (8.4-25.7); Calc. Creatinine Clearance 10 mL/min (70-130); Calcium 7.9 mg/dL (7.8-10.44); Carbon Dioxide 24 mmol/L (23-31); Chloride 96 mmol/L (98-107); Estimated GFR 8; Glucose 88 mg/dL (80-115); Potassium 4.5 mmol/L (3.5-5.1); Sodium 133 mmol/L (136-145)
[2022-11-22] MEDS ORDERED: Heparin 10,000 UNITS/ 10 ML VIAL ONE (08:34)
[2022-11-22] MEDS: Gabapentin 100 MG CAP PO SCH (09:08)
[2022-11-22] MEDS: Thiamine 100 MG TAB PO SCH (09:08)
[2022-11-22] MEDS: Folic Acid 1 MG TAB PO SCH (09:08)
[2022-11-22] MEDS: Senokot S 8.6-50 MG TAB PO SCH ×2 (09:09→20:17)
[2022-11-22] MEDS: Polyethylene Glycol 3350 17 GM Packet PO SCH (09:09)
[2022-11-22] MEDS: Famotidine/PF 20 mg/2ml Vial SLOW IVP SCH ×2 (09:10→09:25)
[2022-11-22] MEDS: Heparin 5,000 UNITS/ML VIAL SC SCH ×2 (09:10→10:20)
[2022-11-22] MEDS: Carvedilol 6.25 MG TAB PO SCH ×2 (09:19→20:17)
[2022-11-22] MEDS: NIFEdipine XL 60 MG TAB PO SCH ×2 (09:19→20:17)
[2022-11-22] MEDS: Apixaban 2.5 MG TAB PO SCH ×2 (09:25→20:28)
[2022-11-22] MEDS ORDERED: Oxazepam 10 MG CAP PO SCH (21:00)
[2022-11-23] MEDS: Acetaminophen 500 MG TAB PO SCH ×4 (02:05→20:32)
[2022-11-23] MEDS: Polyethylene Glycol 3350 17 GM Packet PO SCH (08:48)
[2022-11-23] MEDS: Senokot S 8.6-50 MG TAB PO SCH ×2 (08:49→20:32)
[2022-11-23] MEDS: Carvedilol 6.25 MG TAB PO SCH ×2 (08:49→20:33)
[2022-11-23] MEDS: Folic Acid 1 MG TAB PO SCH (08:49)
[2022-11-23] MEDS: NIFEdipine XL 60 MG TAB PO SCH ×2 (08:49→20:32)
[2022-11-23] MEDS: Apixaban 2.5 MG TAB PO SCH ×2 (08:49→20:33)
[2022-11-23] MEDS: Thiamine 100 MG TAB PO SCH (08:49)
[2022-11-24] MEDS: Acetaminophen 500 MG TAB PO SCH ×4 (02:31→20:17)
[2022-11-24] MEDS: Folic Acid 1 MG TAB PO SCH (09:39)
[2022-11-24] MEDS: NIFEdipine XL 60 MG TAB PO SCH ×2 (09:39→20:15)
[2022-11-24] MEDS: Senokot S 8.6-50 MG TAB PO SCH ×2 (09:39→20:18)
[2022-11-24] MEDS: Polyethylene Glycol 3350 17 GM Packet PO SCH (09:39)
[2022-11-24] MEDS: Carvedilol 6.25 MG TAB PO SCH ×2 (09:39→20:16)
[2022-11-24] MEDS: Thiamine 100 MG TAB PO SCH (09:39)
[2022-11-24] MEDS: Apixaban 2.5 MG TAB PO SCH ×2 (09:40→20:18)
[2022-11-25] MEDS: Acetaminophen 500 MG TAB PO SCH ×4 (01:58→21:30)
[2022-11-25] MEDS: Polyethylene Glycol 3350 17 GM Packet PO SCH (13:31)
[2022-11-25] MEDS: Senokot S 8.6-50 MG TAB PO SCH ×2 (13:31→21:30)
[2022-11-25] MEDS: Thiamine 100 MG TAB PO SCH (16:18)
[2022-11-25] MEDS: Folic Acid 1 MG TAB PO SCH (16:19)
[2022-11-25] MEDS: NIFEdipine XL 60 MG TAB PO SCH ×2 (16:20→21:29)
[2022-11-25] MEDS: Carvedilol 6.25 MG TAB PO SCH ×2 (16:20→21:29)
[2022-11-25] MEDS: Apixaban 2.5 MG TAB PO SCH ×2 (16:20→21:30)
[2022-11-26] MEDS: Acetaminophen 500 MG TAB PO SCH ×4 (02:35→21:28)
[2022-11-26] MEDS: Carvedilol 6.25 MG TAB PO SCH ×2 (08:27→21:28)
[2022-11-26] MEDS: Polyethylene Glycol 3350 17 GM Packet PO SCH (08:28)
[2022-11-26] MEDS: Thiamine 100 MG TAB PO SCH (08:28)
[2022-11-26] MEDS: Senokot S 8.6-50 MG TAB PO SCH ×2 (08:28→21:28)
[2022-11-26] MEDS: Folic Acid 1 MG TAB PO SCH (08:28)
[2022-11-26] MEDS: NIFEdipine XL 60 MG TAB PO SCH ×2 (08:28→21:28)
[2022-11-26] MEDS: Apixaban 2.5 MG TAB PO SCH ×2 (08:30→21:28)
[2022-11-27] MEDS: Acetaminophen 500 MG TAB PO SCH ×4 (03:50→21:42)
[2022-11-27 06:10] LABS: Anion Gap 20 mmol/L (10-20); BUN (Urea Nitrogen) 68 mg/dL (8.4-25.7); Calc. Creatinine Clearance 10 mL/min (70-130); Calcium 8.7 mg/dL (7.8-10.44); Carbon Dioxide 20 mmol/L (23-31); Chloride 97 mmol/L (98-107); Estimated GFR 8; Glucose 108 mg/dL (80-115); Potassium 3.8 mmol/L (3.5-5.1); Sodium 133 mmol/L (136-145)
[2022-11-27] MEDS ORDERED: Heparin 10,000 UNITS/ 10 ML VIAL ONE (08:22)
[2022-11-27] MEDS: Folic Acid 1 MG TAB PO SCH (11:24)
[2022-11-27] MEDS: Apixaban 2.5 MG TAB PO SCH ×2 (11:24→21:41)
[2022-11-27] MEDS: Carvedilol 6.25 MG TAB PO SCH ×2 (11:24→21:42)
[2022-11-27] MEDS: NIFEdipine XL 60 MG TAB PO SCH ×2 (11:24→21:41)
[2022-11-27] MEDS: Senokot S 8.6-50 MG TAB PO SCH ×2 (11:24→21:41)
[2022-11-27] MEDS: Thiamine 100 MG TAB PO SCH (11:24)
[2022-11-27] MEDS: Polyethylene Glycol 3350 17 GM Packet PO SCH (11:24)
[2022-11-28] MEDS: Acetaminophen 500 MG TAB PO SCH ×4 (01:26→21:22)
[2022-11-28] MEDS: Carvedilol 6.25 MG TAB PO SCH ×2 (08:38→21:23)
[2022-11-28] MEDS: Polyethylene Glycol 3350 17 GM Packet PO SCH (08:38)
[2022-11-28] MEDS: NIFEdipine XL 60 MG TAB PO SCH ×2 (08:38→21:23)
[2022-11-28] MEDS: Senokot S 8.6-50 MG TAB PO SCH ×2 (08:38→21:23)
[2022-11-28] MEDS: Thiamine 100 MG TAB PO SCH (08:39)
[2022-11-28] MEDS: Apixaban 2.5 MG TAB PO SCH ×2 (08:39→21:23)
[2022-11-28] MEDS: Folic Acid 1 MG TAB PO SCH (08:39)
[2022-11-29] MEDS: Acetaminophen 500 MG TAB PO SCH ×3 (02:39→13:31)
[2022-11-29] MEDS ORDERED: Heparin 10,000 UNITS/ 10 ML VIAL ONE (09:25)
[2022-11-29] MEDS: Carvedilol 6.25 MG TAB PO SCH ×2 (11:43→13:31)
[2022-11-29] MEDS: Folic Acid 1 MG TAB PO SCH (11:43)
[2022-11-29] MEDS: Polyethylene Glycol 3350 17 GM Packet PO SCH (11:44)
[2022-11-29] MEDS: Thiamine 100 MG TAB PO SCH (11:44)
[2022-11-29] MEDS: NIFEdipine XL 60 MG TAB PO SCH ×2 (11:44→13:31)
[2022-11-29] MEDS: Senokot S 8.6-50 MG TAB PO SCH (11:44)
[2022-11-29 13:23] VITALS: TEMP 97.9
[2022-11-29] MEDS: Apixaban 2.5 MG TAB PO SCH (13:31)
[2022-11-29 13:32] VITALS: BP 151/77
== END 2022-11-29 14:20 | DRG 521 ==
LOC: ERS 21:59 → SURG A 11-18 01:46
PROVIDERS: ADMIT Surgery; ATTEND Surgery
PROC: 5A1D70Z Performance of Urinary Filtration, Intermittent, Less than 6 Hours Per Day (ICD-10-PCS; 2022-11-18)
PROC: 0SRS0J9 Replacement of Left Hip Joint, Femoral Surface with Synthetic Substitute, Cemented, Open Approach (ICD-10-PCS; principal; 2022-11-19)
DX: S72.032A Displaced midcervical fracture of left femur, initial encounter for closed fracture (principal); N18.6 End stage renal disease; I13.2 Hypertensive heart and chronic kidney disease with heart failure and with stage 5 chronic kidney disease, or end stage renal disease; I50.22 Chronic systolic (congestive) heart failure; E87.1 Hypo-osmolality and hyponatremia; W18.39XA Other fall on same level, initial encounter; F17.210 Nicotine dependence, cigarettes, uncomplicated; D63.1 Anemia in chronic kidney disease; Y92.009 Unspecified place in unspecified non-institutional (private) residence as the place of occurrence of the external cause; Z99.2 Dependence on renal dialysis; Z86.73 Personal history of transient ischemic attack (TIA), and cerebral infarction without residual deficits; Z79.01 Long term (current) use of anticoagulants; Z79.02 Long term (current) use of antithrombotics/antiplatelets
CPT/HCPCS: 36415; 36416; 70450; 71045; 72170; 76870; 80048; 80053; 83735; 83880; 84100; 85025; 85610; 85730; 86704; 90935; 93005; 93306; 93976; 96374; 96376; C1713; C1776; G0257; J0360; J1644; J2272; J2370; J2405; J2704; J3010; J3490; J7050; J7070; S0028

== ENCOUNTER 2024-06-03 20:45 | Emergency (ER) | payer MEDICARE, OTHER ==
[2024-06-03 21:36] LABS: #Basophils Less than 0.03 10x3/uL (0.0-0.2); %Basophils 0.3 % (0.0-1.0); %Eosinophils 3.6 % (0.0-10.0); %Lymphocytes 10.3 % (21.0-51.0); %Monocytes 3.2 % (0.0-10.0); %Neutrophils 82.2 % (42.0-75.0); Hematocrit 27.7 % (42.0-52.0); Hemoglobin 9.2 g/dL (14.0-18.0); Mean Corpuscular HGB CONC 33.2 g/dL (32.0-36.0); Mean Corpuscular Hemoglobin 29.2 pg (27.0-31.0); Mean Corpuscular Volume 87.9 fL (78.0-98.0); Mean Platelet Volume 10.7 fL (7.4-10.4); Platelet Count 155 10x3/uL (130-400); RBC Distribution Width 14.8 % (11.5-14.5); Red Blood Cell (RBC) Count 3.15 mill/uL (4.70-6.10)
[2024-06-03 21:59] LABS: ALT (SGPT) 15 U/L (8-55); AST (SGOT) 11 U/L (5-34); Albumin 3.2 g/dL (3.4-4.8); Alkaline Phosphatase 105 U/L (40-110); Anion Gap 17 mmol/L (10-20); BUN (Urea Nitrogen) 100 mg/dL (8.4-25.7); Bilirubin, Total 0.6 mg/dL (0.2-1.2); Calc. Creatinine Clearance 0 mL/min (70-130); Calcium 8.1 mg/dL (7.8-10.44); Carbon Dioxide 17 mmol/L (23-31); Chloride 112 mmol/L (98-107); Estimated GFR 6; Globulin 3.6 g/dL (2.4-3.5); Glucose 123 mg/dL (80-115); Potassium 4.4 mmol/L (3.5-5.1); Protein, Total 6.8 g/dL (5.8-8.1); Sodium 142 mmol/L (136-145)
== END 2024-06-04 01:30 ==
LOC: ERS 20:45
DX: I12.0 Hypertensive chronic kidney disease with stage 5 chronic kidney disease or end stage renal disease (principal); E11.22 Type 2 diabetes mellitus with diabetic chronic kidney disease; N18.6 End stage renal disease; I48.91 Unspecified atrial fibrillation; F17.210 Nicotine dependence, cigarettes, uncomplicated; Z99.2 Dependence on renal dialysis
CPT/HCPCS: 36415; 71045; 80053; 85025

== ENCOUNTER 2024-06-10 18:30 | Emergency (ER) | payer MEDICARE, OTHER ==
[~2024-06-10 18:30] MED LIST: Heparin 10,000 UNITS/ 10 ML VIAL ONE
[2024-06-10 20:41] LABS: #Basophils 0.04 10x3/uL (0.0-0.2); %Basophils 0.5 % (0.0-1.0); %Lymphocytes 7.7 % (21.0-51.0); %Monocytes 3.2 % (0.0-10.0); %Neutrophils 85.1 % (42.0-75.0); Hematocrit 28.8 % (42.0-52.0); Hemoglobin 9.4 g/dL (14.0-18.0); Mean Corpuscular HGB CONC 32.6 g/dL (32.0-36.0); Mean Corpuscular Hemoglobin 29.6 pg (27.0-31.0); Mean Corpuscular Volume 90.6 fL (78.0-98.0); Platelet Count 181 10x3/uL (130-400); RBC Distribution Width 15.8 % (11.5-14.5); Red Blood Cell (RBC) Count 3.18 mill/uL (4.70-6.10)
[2024-06-10 20:57] LABS: ALT (SGPT) 11 U/L (8-55); AST (SGOT) 6 U/L (5-34); Albumin 3.2 g/dL (3.4-4.8); Alkaline Phosphatase 89 U/L (40-110); Anion Gap 17 mmol/L (10-20); BUN (Urea Nitrogen) 103 mg/dL (8.4-25.7); Bilirubin, Total 0.5 mg/dL (0.2-1.2); Calc. Creatinine Clearance 0 mL/min (70-130); Calcium 7.9 mg/dL (7.8-10.44); Carbon Dioxide 15 mmol/L (23-31); Chloride 114 mmol/L (98-107); Estimated GFR 6; Globulin 3.2 g/dL (2.4-3.5); Glucose 152 mg/dL (80-115); Potassium 4.1 mmol/L (3.5-5.1); Protein, Total 6.4 g/dL (5.8-8.1); Sodium 142 mmol/L (136-145)
[2024-06-11] MEDS ORDERED: EPOETIN ALFA-EPBX 10,000 UNITS/ML VIAL IVP SCH (02:30)
== END 2024-06-11 07:40 ==
LOC: ERS 18:30
DX: Z91.158 Patient's noncompliance with renal dialysis for other reason (principal); Z86.73 Personal history of transient ischemic attack (TIA), and cerebral infarction without residual deficits; N19 Unspecified kidney failure; E11.9 Type 2 diabetes mellitus without complications; I10 Essential (primary) hypertension; F17.210 Nicotine dependence, cigarettes, uncomplicated
CPT/HCPCS: 71045; 80053; 82962; 85025; J1644; Q5106; 36415; 36416; 90935; 96374; 96375; G0257

== ENCOUNTER 2024-07-21 15:03 | Emergency (ER) | payer MEDICARE, OTHER ==
[2024-07-21 15:50] LABS: #Basophils 0.03 10x3/uL (0.0-0.2); %Basophils 0.5 % (0.0-1.0); %Eosinophils 3.6 % (0.0-10.0); %Lymphocytes 7.2 % (21.0-51.0); %Monocytes 3.9 % (0.0-10.0); %Neutrophils 84.3 % (42.0-75.0); Hematocrit 27.2 % (42.0-52.0); Hemoglobin 8.7 g/dL (14.0-18.0); Mean Corpuscular Hemoglobin 28.9 pg (27.0-31.0); Mean Corpuscular Volume 90.4 fL (78.0-98.0); Mean Platelet Volume 11.1 fL (7.4-10.4); Platelet Count 122 10x3/uL (130-400); RBC Distribution Width 15.2 % (11.5-14.5); Red Blood Cell (RBC) Count 3.01 mill/uL (4.70-6.10)
[2024-07-21 16:10] LABS: ALT (SGPT) 26 U/L (8-55); AST (SGOT) 14 U/L (5-34); Albumin 3.3 g/dL (3.4-4.8); Alkaline Phosphatase 90 U/L (40-110); Anion Gap 17 mmol/L (10-20); BUN (Urea Nitrogen) 85 mg/dL (8.4-25.7); Bilirubin, Total 0.6 mg/dL (0.2-1.2); Calc. Creatinine Clearance 0 mL/min (70-130); Calcium 7.9 mg/dL (7.8-10.44); Carbon Dioxide 13 mmol/L (23-31); Chloride 118 mmol/L (98-107); Estimated GFR 6; Globulin 3.4 g/dL (2.4-3.5); Glucose 124 mg/dL (80-115); Potassium 4.6 mmol/L (3.5-5.1); Protein, Total 6.7 g/dL (5.8-8.1); Sodium 143 mmol/L (136-145)
== END 2024-07-21 23:39 ==
LOC: ERS 15:03
DX: I12.9 Hypertensive chronic kidney disease with stage 1 through stage 4 chronic kidney disease, or unspecified chronic kidney disease (principal); E11.22 Type 2 diabetes mellitus with diabetic chronic kidney disease; N18.9 Chronic kidney disease, unspecified; I48.91 Unspecified atrial fibrillation; F17.210 Nicotine dependence, cigarettes, uncomplicated; Z99.2 Dependence on renal dialysis; Z86.73 Personal history of transient ischemic attack (TIA), and cerebral infarction without residual deficits; Z55.0 Illiteracy and low-level literacy
CPT/HCPCS: 36415; 80053; 85025; 93005; J1644